=== PATIENT | male | born 1965 | race Native Hawaiian/Other Pacific Islander ===

== ENCOUNTER 2021-10-30 17:17 | Emergency (ER) | payer MEDICARE ==
[2021-10-30 17:27] VITALS: O2SAT 98
[2021-10-30] MEDS ORDERED: TORAdol 30 mg Injection IM ONE (17:42)
[2021-10-30] MEDS ORDERED: TORAdol 30 mg Injection ONE (17:46)
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
[2021-10-30] MEDS ORDERED: NORCO 5/325 MG PO ONE (19:19)
[2021-10-30] MEDS ORDERED: NORCO 5/325 MG ONE (19:26)
[2021-10-30 19:46] VITALS: BP 120/74; PULSE 78
--- NOTE | 2021-10-30 22:29 | XRAY ---
Indication: Status post fall. Comparison: None 3 view left ankle demonstrates old distal fibula shaft and old medial malleolus fractures with intact fixation hardware. Small bony exostosis emanates from distal fibula posteriorly. Mild/moderate talotibial degenerative changes and mild soft tissue swelling. No other bony, articular, or soft tissue abnormalities. Comment: Preliminary interpretation made by [facility]. No critical discrepancy.
--- NOTE | 2021-10-30 22:31 | XRAY ---
Indication: Pain following fall. Multiple contiguous axial images obtained through the pelvis. Sagittal and coronal reformatted images obtained. Comparison: None Osseous structures are demineralized. Mild left and moderate right hip degenerative arthropathy with acetabular spurring and joint space narrowing. Bilateral L5 spondylolysis with approximately 9-10 mm spondylolisthesis. No acute fracture, dislocation, or suspicious bony lesions. Visualized noncontrasted soft tissues including pelvic contents are unremarkable. Impression: 1. Negative acute fracture/dislocation. 2. Bilateral hip degenerative arthropathy. 3. L5 spondylolysis with grade 2 spondylolisthesis. Comment: Preliminary interpretation made by [facility]. No critical discrepancy.
== END 2021-10-30 19:46 | disposition home or self-care (01) ==
LOC: ED 17:17
DX: S93.402A Sprain of unspecified ligament of left ankle, initial encounter (principal); W18.31XA Fall on same level due to stepping on an object, initial encounter; Y93.H9 Activity, other involving exterior property and land maintenance, building and construction; Y92.481 Parking lot as the place of occurrence of the external cause; M25.572 Pain in left ankle and joints of left foot; G89.29 Other chronic pain; M25.551 Pain in right hip; E78.5 Hyperlipidemia, unspecified; I10 Essential (primary) hypertension; J44.9 Chronic obstructive pulmonary disease, unspecified; Z72.0 Tobacco use
CPT/HCPCS: 72192; 73610; 96372; 99284; J1885; A9270-GY